=== PATIENT | female | born 2000 | race Caucasian/White ===

== ENCOUNTER 2021-06-12 20:04 | Emergency (ER) | payer OTHER ==
[~2021-06-12] VITALS: Ht 160 cm; Wt 61.2 kg
[2021-06-12 21:18] LABS: BASO % 0.2 % (0.0-2.0); EOS # 0.5 K/mm3 (0.0-0.7); EOS % 5.8 % (0-4.0); GRAN % 61.8 % (42.2-75.2); HEMOGLOBIN 12.1 g/dl (12.0-15.0); LYMPH # 1.9 K/mm3 (1.2-3.4); MEAN CELL VOLUME 82 fl (80.0-95.0); MEAN CORPUSCULAR HEMOGLOBIN 25 pg (26.0-32.0); MEAN CORPUSCULAR HGB CONC 31 g/dl (33.0-37.0); MEAN PLATELET VOLUME 9.7 fl (7.4-10.4); MONO # 0.7 K/mm3 (0.1-0.6); MONO % 8.8 % (1.7-9.3); PLATELET COUNT 326 K/mm3 (130-400); RED BLOOD COUNT 4.76 M/mm3 (4.10-5.30); REDCELL DISTRIBUTION WIDTH-CV 14.1 % (11.5-14.5)
[2021-06-12] MEDS ORDERED: CELEXA 20MG20 MG/TAB PO (21:19)
[2021-06-12] MEDS ORDERED: ADDERALL10 MG PO (21:19)
[2021-06-12 21:34] LABS: ALBUMIN 3.9 gm/dL (3.5-5.0); BILIRUBIN,TOTAL 0.3 mg/dL (0.2-1.2); C-REACTIVE PROTEIN 0.2 mg/dL (0.00-0.50); CALCIUM 9.3 mg/dL (8.4-10.2); CREATININE, serum 0.81 mg/dL (0.57-1.11); POTASSIUM 3.7 mmol/L (3.5-4.5); TOTAL PROTEIN 7.3 gm/dL (6.2-8.1)
[2021-06-12 21:52] LABS: COLLECTION METHOD CLEAN CATCH
[2021-06-12 22:01] LABS: PH 8 (5-8); SQUAMOUS EPITHELIAL 0-2 /hpf; URINE APPEARANCE Cloudy; URINE BACTERIA None Seen /hpf; URINE BILIRUBIN Negative (NEGATIVE); URINE BLOOD Negative (NEGATIVE); URINE COLOR Yellow; URINE GLUCOSE Negative (NEGATIVE); URINE KETONE Negative (NEGATIVE); URINE LEUKOCYTE ESTERASE Negative (NEGATIVE); URINE NITRATE Negative (NEGATIVE); URINE PROTEIN(semi-quant) Negative (NEGATIVE); URINE UROBILINOGEN Negative (NEGATIVE)
[2021-06-12 22:34] VITALS: BP 117/77; PULSE 83; TEMP 97.8
== END 2021-06-12 22:34 | disposition home or self-care (01) ==
LOC: COL.ER 20:04
PROVIDERS: Emergency Medicine
DX: R10.30 Lower abdominal pain, unspecified (principal); F41.9 Anxiety disorder, unspecified; F90.9 Attention-deficit hyperactivity disorder, unspecified type; F17.290 Nicotine dependence, other tobacco product, uncomplicated; Z79.899 Other long term (current) drug therapy